=== PATIENT | female | born 1985 | race Caucasian/White ===

== ENCOUNTER 2024-10-21 18:02 | Emergency (ER) | payer SELFPAY ==
--- NOTE | 2024-10-21 18:06 | ED.URI ---
HPI - URI/Sore Throat General Chief Complaint: Upper Respiratory Infection Stated Complaint: Stomach Pain/Congestion/Dizzy/Chills Source: patient and RN notes reviewed Mode of arrival: ambulatory Limitations: no limitations History of Present Illness HPI Narrative: Patient is a 39-year-old female who presents to the [facility] with complaints of sinus pain and pressure along with nasal congestion that has been ongoing for the past 2 weeks. She states that her symptoms have worsened in severity over the past 2 weeks. She became mildly dizzy earlier today, which caused her to be nauseous. Denies abdominal pain, vomiting, diarrhea. She believes that the intermittent dizziness and nausea is due to the headache that is there due to the sinus pain and pressure. She states that she was seen by a doctor when the symptoms were started and she was told it was allergies. She has been taking Zyrtec without any relief of her symptoms. She denies chest pain or shortness of breath. She is alert and oriented x4 with no obvious neurologic deficits. She is unsure of any known sick contacts. Related Data Home Medications ?Medication ?Instructions ?Recorded ?Confirmed ?Last Taken ?Type chlorzoxazone 500 mg tablet mg 10/21/24 Unknown History lisdexamfetamine 30 mg capsule mg 10/21/24 Unknown History propranolol 60 mg capsule,24 mg PO 10/21/24 Unknown History hr,extended release Allergies Allergy/AdvReac Type Severity Reaction Status Date / Time codeine Allergy Mild Hives Verified 10/21/24 18:16 Review of Systems Review of Systems: CONSTITUTIONAL: Denies fever, but reports chills. EYES: Denies visual changes, redness, or discharge. ENT: Denies otalgia and sore throat. Reports sinus pain and pressure. CARDIOVASCULAR: Denies chest pain, palpitations, or edema. RESPIRATORY: Denies cough or dyspnea. GASTROINTESTINAL: Denies abdominal pain, nausea, vomiting, or diarrhea. GENITOURINARY: Denies dysuria or hematuria. SKIN: Denies rash or itching. MUSCULOSKELETAL: Denies back pain, joint pain, or myalgia. NEUROLOGIC: Reports headache but denies numbness or weakness. Pertinent positives per HPI. PMFSH Comments At the time of my signature, I reviewed and agree with the nursing past medical, surgical, social, and family history. There is no relevant family history pertinent to the patient complaint. Exam Narrative: GENERAL: This is a well-nourished, well-developed patient, in no apparent distress. HEAD: normocephalic, atraumatic. EYES: Sclera clear/white. Vision is grossly intact. EARS: External ears normal, auditory canals clear and without drainage, TMs with effusion. Hearing grossly intact. NOSE: External nose normal with no obvious nasal discharge. + congestion. THROAT: Mucous membranes moist, posterior pharynx clear. NECK: Neck supple, non-tender without lymphadenopathy, masses or thyromegaly. CARDIOVASCULAR: Regular rate and rhythm without murmurs, gallops, or rubs. RESPIRATORY: Clear to auscultation. Breath sounds equal bilaterally. No wheezes, rales, or rhonchi. GASTROINTESTINAL: Abdomen soft, non-tender, nondistended. Bowel sounds are active. No hepato-splenomegaly, or palpable masses. No guarding. SKIN: warm, intact with no suspicious lesions or rash, good texture and turgor. NEURO: awake, alert, and oriented to person, place and time. There were no obvious focal neurologic abnormalities. Course Course Level of Care: Express Care Visit Vital Signs Vital signs: Vital Signs Temperature 97.1 F L 10/21/24 18:12 Pulse Rate 78 10/21/24 18:12 Respiratory Rate 16 10/21/24 18:12 Blood Pressure 131/94 H 10/21/24 18:12 Pulse Oximetry 100 10/21/24 18:12 Oxygen Delivery Room Air 10/21/24 18:12 Temperature 97.1 F L 10/21/24 18:12 Pulse Rate 78 10/21/24 18:12 Respiratory Rate 16 10/21/24 18:12 Blood Pressure 131/94 H 10/21/24 18:12 Pulse Oximetry 100 10/21/24 18:12 Oxygen Delivery Room Air 10/21/24 18:12 Reviewed MDM - URI/Sore Throat MDM Narrative Medical decision making narrative: Go to the ER for any new or worsening symptoms. Avoid smoking/second-hand smoke. Continue to take Tylenol or Motrin for pain. Increase your Vitamin C intake. Use a humidifier or vaporizer at night. Take Medications as prescribed. Drink plenty of water. 8-10 glasses per day. Use flonase 2 times per day for 5 days then as needed Take mucinex 2 times per day and be sure to take with 8oz of water. Follow up with Primary provider if not getting better. Differential Diagnosis Differential diagnosis: Likely upper respiratory infection, sinusitis and viral infection Critical Care Time Critical Care Time Critical Care Time: No Discharge Plan Discharge Clinical Impression: Acute bacterial sinusitis Patient Disposition: Home Condition: Stable Instructions: Antibiotic Form, Sinusitis (ED) Additional Instructions: Go to the ER for any new or worsening symptoms. Avoid smoking/second-hand smoke. Continue to take Tylenol or Motrin for pain. Increase your Vitamin C intake. Use a humidifier or vaporizer at night. Take Medications as prescribed. Drink plenty of water. 8-10 glasses per day. Use flonase 2 times per day for 5 days then as needed Take mucinex 2 times per day and be sure to take with 8oz of water. Follow up with Primary provider if not getting better. Patient Language: Stateless Prescriptions: New amoxicillin-pot clavulanate 875-125 mg tablet 1 tablet PO Q12H 10 Days Qty: 20 0RF fluticasone propionate [Flonase Allergy Relief] 50 mcg/actuation spray,suspension 1 spray intranasal BID Qty: 16 0RF Rx Instructions: administer into each nostril No Action chlorzoxazone 500 mg tablet propranolol 60 mg capsule,extended release 24 hr PO lisdexamfetamine 30 mg capsule Follow-up/Referrals: PHYSICIAN,CHIMNEY MECHANIC [Primary Care Provider] - Time of Disposition: 18:24
[2024-10-21 18:12] VITALS: BP 131/94; PULSE 78; RESP 16; TEMP 36.2; O2SAT 100
== END 2024-10-21 18:25 | disposition home or self-care (01) ==
PROVIDERS: Emergency Provider Nurse Practitioner
DX: J01.90 Acute sinusitis, unspecified (principal)
CPT/HCPCS: 99203; G0463